=== PATIENT | female | born 1955 | race Hispanic/Latino ===

== ENCOUNTER → 2019-10-14 | Day surgery (SDC) | payer OTHER ==
[2019-10-09 12:13] LABS: BASOPHILS # (AUTO) 0.1 (0.0-0.1); BASOPHILS % 0.9 % (0.0-1.0); EOSINOPHILS # (AUTO) 0.3 (0.0-0.4); EOSINOPHILS % 3.3 % (0.0-6.0); HEMATOCRIT 42.2 % (34.2-44.1); LYMPHOCYTES # (AUTO) 1.7 (1.0-3.2); LYMPHOCYTES % 22.7 % (18.0-39.1); MEAN CORPUSCULAR HEMOGLOBIN 28.7 pg (28-32); MEAN CORPUSCULAR HGB CONC 33.2 g/dL (31-35); MEAN CORPUSCULAR VOLUME 86.5 fL (81-99); MONOCYTES # (AUTO) 0.8 (0.2-0.8); MONOCYTES % 9.9 % (4.4-11.3); NEUTROPHILS # (AUTO) 4.8 (2.1-6.9); NEUTROPHILS % 62.7 % (38.7-80.0); PLATELET COUNT 270 x10e3/uL (140-360); RED BLOOD COUNT 4.88 x10e6/uL (3.6-5.1); RED CELL DISTRIBUTION WIDTH 12.8 % (11.7-14.4)
--- NOTE | 2019-10-09 12:28 | Diagnostic Imaging Report ---
Chest, 2 views, 10/09/2019. History: Preop, foot surgery. Comparison: None available. Findings: The cardiomediastinal silhouette and pulmonary vasculature are within normal limits. The lungs are clear without evidence of consolidation or pleural effusion. Degenerative changes are noted within the thoracic spine. There are no acute osseous or soft tissue abnormalities. Impression: No acute cardiopulmonary abnormality. Signed by: Kevin Bradshaw on 10/09/2019 12:25 PM
[2019-10-09 12:34] LABS: ANION GAP 13.6 mmol/L (8-16); BLOOD UREA NITROGEN 18 mg/dL (7-26); BUN/CREATININE RATIO 21 (6-25); CALCIUM 9.8 mg/dL (8.4-10.2); CARBON DIOXIDE 27 mmol/L (22-29); CHLORIDE 104 mmol/L (98-107); CREATININE, SERUM 0.87 mg/dL (0.57-1.11); EST GLOMERULAR FILTRATION RATE > 60 ML/MIN (60-); GLUCOSE 100 mg/dL (74-118); POTASSIUM 3.6 mmol/L (3.5-5.1); SODIUM 141 mmol/L (136-145)
[~2019-10-14] MED LIST: ATORVASTATIN CA10 MG PO; BENAZEPRIL HCL40 MG PO; BETAMETHASONE DISODIUM PHOS 6 MG/ML VIAL ONE; BUPIVACAINE HCL 0.5% INJ 30 ML VIAL INJ ONE; CEFAZOLIN SOD 1 GM/NS 50ML 100 ML IV ONE; DEXAMETHASONE SOD PHOS INJ 4 MG/ML VIAL ONE; FENTANYL CITRATE/PF 100MCG/2 ML INJ ONE; HYDROCHLOROTHIA25 MG PO; KETOROLAC TROMETHAMINE 30 MG/ML VIAL ONE; LIDOCAINE HCL 1% LOCAL INJ 20 ML VIAL ONE; LIDOCAINE HCL 2% LOCAL INJ 5 ML SDV VIAL INJ ONE; MIDAZOLAM HCL 2 MG/2 ML VIAL ONE; MUPIROCIN 2% OINT 22 GM TUBE ONE; ONDANSETRON HCL INJ 2MG/ML 2ML 2 MG/ML VIAL ONE; PROPOFOL IV EMULSION 10 MG/ML 20 ML VIAL ONE; SEVOFLURANE INHAL SOLN 250 ML PEN BTL ONE
--- OUTSIDE RECORDS SUMMARY | 2019-10-14 05:25 | XMS REPORT ---
[facility] Address Unknown Phone Unavailable Care Team Providers Care Coil Winder Strap Name Role Phone GUILLERMINA BURDEN Unavailable Unavailable Problems This patient has no known problems. Allergies, Adverse Reactions, Alerts This patient has no known allergies or adverse reactions. Medications This patient has no known medications. Results Test Description Test Time Test Comments Text Results Atomic Results Result Comments CHEST 2 VIEWS 2019-10-09 12:24:00 [place] [address] Patient Name: LEILA ESPAÑA MR #: [id number] : 1955 Age/Sex: 64/F Req #: [id number] Adm Physician: Ordered by: GUILLERMINA BURDEN DPM Report #: [id number] Location: OR Room/Bed: Procedure: [id number] DX/CHEST 2 VIEWS Exam Date: 10/09/19 Exam Time: 1140 REPORT STATUS: Signed Chest, 2 views, 10/09/2019. History: Preop, foot surgery. Comparison: None available. Findings: The cardiomediastinal silhouette and pulmonary vasculature are within normal limits. The lungs are clear without evidence of consolidation or pleural effusion. Degenerative changes are noted within the thoracic spine. There are no acute osseous or soft tissue abnormalities. Impression: No acute cardiopulmonary abnormality. Signed by: Fina Brasdhaw on 10/09/2019 12:25 PM Dictated By: FINA BRADSHAW MD 1225 Transcribed By: PREETHI on 10/09/19 1225 COPY TO: GUILLERMINA BURDEN DPM CT Angio Chest 2019-02-05 14:49:20 Patient: LEILA ESPAÑA Date/Time02/05/2019 14:05 CDTReason for Examchest pain with elevated dimer level;Chest painReportCHEST CT WITH CONTRAST, PE PROTOCOL.CLINICAL HISTORY: Chest pain;chest pain with elevated dimer levelTECHNIQUE: Helical CT the chest was performed following the administration of 100 mL Omnipaque 350 intravenous contrast and submitted as thin section axial, coronal, and sagittally oriented images. Oblique sagittal maximum intensity projected images were also obtained. One or more of the following dose reduction techniques were used: Automated exposure control, adjustment of the mA and/or kV according to patient size, and/or utilization of iterative reconstruction technique.FINDINGS:Diagnostic quality: AdequatePulmonary embolism: None.Right heart strain: No CT evidence of right heart strain.Pulmonary arteries: Normal in caliberLung parenchyma: There are several tiny, less than 5 mm, noncalcified pulmonary nodules. Examples can be seen in the right upper lobe (series 4, images 34 and 47), right middle lobe (image 55 and 68), and left upper lobe (image 53). Mild dependent atelectasis is noted in the lung bases. No alveolar consolidation is seen. Pulmonary vascular congestion is noted.Pleura: No pleural effusion or pneumothorax.Central airways: Normal.Adenopathy: Right hilar lymph nodes measure up to 1 cm in short axis.Heart and great vessels: The heart is upper normal in size. A trace pericardial effusion is noted.Upper abdomen: The gallbladder is surgically absent.Bones: No aggressive osseous lesion is seen.IMPRESSION:1. No pulmonary embolism is identified.2. Incidental findings of multiple subcentimeter pulmonary nodules and borderline right hilar adenopathy. If prior CT imaging of the chest is available, it can be submitted for comparison. Otherwise chest CT follow-up in 3-6 months is recommended.LOCATION: [facility] Final Dictated by: MD Christian Adam FDictated DT/TM: 02/05/2019 2:45 pmSigned by: MD Christian Adam FSigned (Electronic Signature): 02/05/2019 2:49 pm XR Chest 1 View Frontal 2019-02-04 10:11:57 Patient: LEILA ESPAÑA Date/Time02/04/2019 08:47 CDTReason for ExamChest painReportChest one view AP 02/04/2019 10:11 AMCLINICAL HISTORY: Chest painCOMPARISON: None availableFINDINGS:The lungs are clear, save for bibasilar atelectasis. Cardiomediastinal contours are within normal limits. The central pulmonary vasculature is not engorged.IMPRESSION:Unremarkable frontal chest radiograph. Final Dictated by: MD Mcclure Timothy JDictated DT/TM: 02/04/2019 10:11 amSigned by: MD Mcclure Timothy JSigned (Electronic Signature): 02/04/2019 10:11 am
[2019-10-14 09:05] VITALS: BP 130/95
--- NOTE | 2019-10-14 09:22 | Diagnostic Imaging Report ---
Right foot, 2 views Clinical indication: Status post right foot surgery. Comparison: None Findings/impression: AP and lateral views of the right foot were obtained. Overlying casting material obscures fine bony detail. Patient is status post pin fixation of the first metatarsal head and fourth phalanx. A transverse fracture of the distal fifth proximal phalanx metadiaphysis appears chronic. Signed by: Mathieu Beckman MD on 10/14/2019 9:18 AM
--- NOTE | 2019-10-14 16:05 | Operative Report ---
DATE OF PROCEDURE: 10/14/2019 SURGEON: Hector Varner DPM PREOPERATIVE DIAGNOSES: 1. Painful hallux valgus deformity, right foot. 2. Painful contracted hammertoe, 4th digit, right foot. 3. Painful contracted hammertoe, 5th digit, right foot. 4. Tarsal tunnel syndrome, right foot. 5. Plantar calcaneal heel spur, right foot. POSTOPERATIVE DIAGNOSES: Confirmed. OPERATIVE PROCEDURES: 1. Silver bunionectomy, right foot. 2. Arthroplasty of 4th digit with K-wire fixation. 3. Arthroplasty of 5th digit. 4. Resection of plantar calcaneal heel spur. 5. Neurolysis of tibial nerve. 6. Neurolysis of medial plantar nerve. 7. Neurolysis of lateral plantar nerve. 8. Intraoperative use of fluoroscopy. 9. Trigger point shot of cortisone. 10. Application of posterior splint. ANESTHESIA: General. HEMOSTASIS: Pneumatic thigh tourniquet at 350 mmHg. PROCEDURE IN DETAIL: The patient was taken in the operating room and placed on the operating table in supine position. Following induction of general anesthesia by the anesthesiologist, Webril wraps were placed on the patient's right thigh followed by application of right thigh tourniquet. The right lower extremity was then prepped and draped in the usual aseptic manner and following procedures were then performed: Procedure #1: Silver bunionectomy, right foot. Attention was directed to the dorsal medial aspect of the 1st MPJ, where a 6 cm linear incision was performed. Incision was deepened via sharp and blunt dissection being careful to retract any vital structures and ligate any superficial vessels as necessary. Once the level of capsule was reached, longitudinal capsulotomy was then performed exposing the dorsal medial exostosis of the 1st metatarsal head. Via the use of an oscillating saw, dorsal medial exostosis was excised from the operation site in toto. All rough and bony edges were rasped smooth. Deep foreign body was not encountered and left through the fact that it was not disturbing any vital structures. Procedures #2 and 3: Arthroplasty of 4th and 5th digits with K-wire fixation of 4th. Attention was then directed to the dorsal aspect of the above-mentioned toes, where a 3 cm linear incision was performed down to the capsule. Transverse capsulotomy was then performed exposing the head of the proximal phalanx of the 4th and 5th toes. Via the use of an oscillating saw, head of the proximal phalanxes were excised from the operation site in toto. A 4th toe was still noted to be contracted, so a 0.045 K-wire was introduced up to metatarsophalangeal joint to achieve proper anatomic reduction. Procedure #4: Resection of plantar calcaneal heel spur. Attention was then directed to the medial aspect of the right heel, where a 4 to 5 cm linear incision was performed. Incision was deepened down to the level of plantar fascia. Plantar fascia was then clearly visualized. The medial one-half of the plantar fascia was then cut exposing the plantar calcaneal spur. Via use of a reciprocating bur, the plantar calcaneal spur was excised from the operation site in toto. All rough and bony edges were rasped smooth via the use of a reciprocating bur. Procedure #5, 6, and 7: Neurolysis of tibial nerve, neurolysis of medial plantar nerve, and neurolysis of lateral plantar nerve. Attention was directed to the tarsal canal area, where a curvilinear incision was performed down to the francine pedis. The incision was deepened via sharp and blunt dissection being careful to retract the vital structures and ligate any superficial vessels as necessary. Utilizing meticulous dissection, the flexor retinaculum was then visualized and cut. The neurolysis of tibial nerve was then performed via blunt dissection. The incision was then carried down to the francine pedis until the medial and lateral plantar nerves were dividing and neurolysis of the medial and lateral plantar nerve were then performed via blunt dissection. All adhesions of nerve were bluntly resected down to the francine pedis to allow for proper and clean entry. All areas were then copiously flushed with sterile antibiotic solution and suction. Procedure #8: Intraoperative use of fluoroscopy was then used to make sure proper alignment was achieved and fixation. All areas were then copiously flushed with sterile antibiotic solution and suction. Closure was then obtained utilizing 3-0 Vicryl, 4-0 Vicryl, and 4-0 nylon for capsule, subcutaneous tissue, and skin respectively. Procedure #9: Trigger point shot of cortisone was then given to the 1st and 4th interspace of the right foot. Then, approximately 15 mL of 0.5% plain Marcaine plus 10 mL of 1% Xylocaine plain were used to achieve local anesthesia of above-mentioned surgical area. Sterile dressing was applied. Upon release of the thigh tourniquet, blood hyperemia was noted immediate to all digits of the patient's right foot. Procedure #10: Application of posterior splint. A properly placed posterior splint was then applied keeping the foot at 90 degrees with respect to the leg to try for any type of postop complications. The patient was then transferred from the OR to recovery room with vital signs stable and neurovascular status intact. No intraoperative complications were encountered. Blood loss from the surgery was minimal. The patient is to remain nonweightbearing with the aid of crutches, keep her foot elevated, and is to apply an ice pack to the ankle joint area. MARISSA De La Vega/MICHELET /[id number]
== END | disposition home or self-care (01) ==
LOC: OR 05:22
PROVIDERS: ATTEND Podiatrist Foot Surgery
DX: M20.11 Hallux valgus (acquired), right foot (principal); M20.41 Other hammer toe(s) (acquired), right foot; G57.51 Tarsal tunnel syndrome, right lower limb; M77.31 Calcaneal spur, right foot; G58.8 Other specified mononeuropathies; I10 Essential (primary) hypertension; E78.5 Hyperlipidemia, unspecified; M54.2 Cervicalgia; I25.2 Old myocardial infarction; Z87.891 Personal history of nicotine dependence
CPT/HCPCS: 28035; 28119; 28285 ×2; 28292; 36415; 64704 ×2; 71046; 73620; 80048; 85025; 93005; C1713; J0690; J0720; J1100; J1885; J2001 ×2; J2250; J2405; J2704; J3010